=== PATIENT | female | born 1945 | race Caucasian/White ===

== ENCOUNTER 2019-07-07 17:55 | Inpatient (IN) | payer MEDICARE, OTHER ==
[~2019-07-07] VITALS: Ht 160 cm; Wt 79.4 kg
--- NOTE | 2019-07-07 19:27 | NUR ---
Assuming care of patient. US in room.
[2019-07-07 19:28] LABS: BASOPHILS # (AUTO) 0.05 x10^3/uL (0-0.1); BASOPHILS % (AUTO) 0 % (0-1); EOSINOPHILS # (AUTO) 0.15 x10^3/uL (0-0.4); EOSINOPHILS % (AUTO) 1 % (1-7); LYMPHOCYTES # (AUTO) 2.31 x10^3/uL (1-3.4); LYMPHOCYTES % (AUTO) 18 % (22-44); MD NO; MEAN CORPUSCULAR HEMOGLOBIN 29.4 pg (27.0-34.8); MEAN CORPUSCULAR HGB CONC 32.5 g/dL (32.4-35.8); MEAN CORPUSCULAR VOLUME 90.5 fL (80-100); MEAN PLATELET VOLUME 10.3 fL (7.4-10.4); MONOCYTES # (AUTO) 1.15 x10^3/uL (0.2-0.8); MONOCYTES % (AUTO) 9 % (2-9); NEUTROPHILS # (AUTO) 9.44 x10^3/uL (1.8-6.8); NEUTROPHILS % (AUTO) 72 % (42-75); PLATELET COUNT 362 x10^3/uL (130-400); RED BLOOD COUNT 4.57 x10^6/uL (3.82-5.3); RED CELL DISTRIBUTION WIDTH 15.1 % (9.6-15.2)
[2019-07-07 19:29] LABS: HCT (SEDRATE) 41.7 % (34.6-47.8)
[2019-07-07 19:41] LABS: ANION GAP 5 mmol/L (5-15); CALCIUM 8.7 mg/dL (8.5-10.1); CHLORIDE 110 mmol/L (98-107); CREATININE 1.32 mg/dL (0.55-1.02)
--- NOTE | 2019-07-07 20:01 | NUR ---
Patient presents to ER with swelling, redness, drainage, and pain to the left lower leg. Patient states this started 1 week ago. Patient went to urgent care and they sent her to ER for further care. Patient denies fever today but states she had them a few days ago because she was sick. Patient is in NAD. Respirations even and unlabored.
[2019-07-07] MEDS ORDERED: VANCOMYCIN 1,600 MG in SODIUM CHLORIDE 0.9% 250 ML IV ONE (20:30)
[2019-07-07] MEDS ORDERED: VANCOMYCIN PER PHARMACY MC PRN ×2 (20:30→21:00)
[2019-07-07] MEDS ORDERED: AMPICILLIN/SULBACTAM 3 GM in SODIUM CHLORIDE 0.9% 100 ML IV ONE (20:30)
[2019-07-07] MEDS ORDERED: morphine SULFATE 10 MG/ML, 1ML IVPush PRN (21:00)
[2019-07-07] MEDS ORDERED: GABAPENTIN 100 MG CAPSULE PO SCH (21:00)
[2019-07-07] MEDS ORDERED: GLUCAGON 1 MG IM PRN (21:00)
[2019-07-07] MEDS ORDERED: hydrALAzine 20 MG/ML, 1ML IVPush PRN (21:00)
[2019-07-07] MEDS ORDERED: ONDANSETRON 2MG/ML, 2ML IVPush PRN (21:00)
[2019-07-07] MEDS ORDERED: DEXTROSE 4 GM TAB.CHEW PO PRN (21:00)
[2019-07-07] MEDS ORDERED: DEXTROSE 50%, 50ML SYRINGE IVPush PRN (21:00)
[2019-07-07] MEDS ORDERED: ONDANSETRON ODT 4 MG PO PRN (21:00)
[2019-07-07 21:41] VITALS: BP 121/64
[2019-07-07] MEDS ORDERED: PHARMACOKINETIC MONITORING MC PRN (22:00)
[2019-07-07] MEDS ORDERED: PHARMACOKINETIC CONSULTATION MC ONE (22:00)
[2019-07-07] MEDS: ACETAMINOPHEN 325 MG TABLET PO PRN (22:08)
[2019-07-07] MEDS: OXYcodone IR 5MG TABLET PO PRN (22:08)
[2019-07-07] MEDS: SODIUM CHLORIDE FLUSH 10ML SYR IVF SCH (22:09)
[2019-07-07] MEDS: HEPARIN 5,000 UNITS/ML, 1ML SQ SCH (22:09)
[2019-07-07] MEDS: SODIUM CHLORIDE 0.9% 1,000 ML IV SCH (22:09)
[2019-07-07] MEDS ORDERED: METO25TA35 PO (22:51)
[2019-07-07] MEDS ORDERED: CLOP75TA PO (22:51)
[2019-07-07] MEDS ORDERED: ATOR40TA78 PO (22:51)
[2019-07-07] MEDS ORDERED: OMEP20CA14 PO (22:51)
[2019-07-07] MEDS ORDERED: LOSA100T14 PO (22:51)
[2019-07-07] MEDS ORDERED: RANI150C PO (22:51)
[2019-07-07] MEDS ORDERED: AMLO5TAB10 PO (22:51)
[2019-07-07] MEDS ORDERED: GABA800T5 PO (22:51)
[2019-07-07] MEDS ORDERED: ZOLP5TAB PO (22:51)
[2019-07-07] MEDS: ATORVASTATIN 40 MG TABLET PO SCH (23:21)
[2019-07-07] MEDS: ZOLPIDEM 5MG TABLET PO SCH (23:21)
[2019-07-07] MEDS: INSULIN LISPRO 100 UNITS/ML, PEN SQ-INSULIN SCH (23:22)
[2019-07-07] MEDS: VANCOMYCIN 1,600 MG in SODIUM CHLORIDE 0.9% 250 ML IV SCH (23:22)
[2019-07-08 01:04] VITALS: BP 127/72
[2019-07-08] MEDS: AMPICILLIN/SULBACTAM 3 GM in SODIUM CHLORIDE 0.9% 100 ML IV SCH ×3 (05:04→20:51)
[2019-07-08] MEDS ORDERED: CARVEDILOL 3.125 MG TABLET PO SCH (06:00)
[2019-07-08] MEDS: HEPARIN 5,000 UNITS/ML, 1ML SQ SCH ×3 (06:02→22:13)
[2019-07-08] MEDS: GABAPENTIN 400 MG CAPSULE PO SCH ×4 (06:02→20:51)
[2019-07-08] MEDS: ASPIRIN 81 MG TABLET EC PO SCH (06:02)
[2019-07-08] MEDS: METOPROLOL TARTRATE 25 MG TABLET PO SCH ×2 (06:02→17:30)
[2019-07-08 07:23] VITALS: BP 129/61
[2019-07-08] MEDS: CLOPIDOGREL 75 MG TABLET PO SCH (08:33)
[2019-07-08] MEDS: AMLODIPINE 5 MG TABLET PO SCH (08:33)
[2019-07-08] MEDS: SODIUM CHLORIDE FLUSH 10ML SYR IVF SCH ×2 (08:33→20:52)
[2019-07-08 08:34] LABS: BASOPHILS # (AUTO) 0.02 x10^3/uL (0-0.1); BASOPHILS % (AUTO) 0 % (0-1); EOSINOPHILS # (AUTO) 0.09 x10^3/uL (0-0.4); EOSINOPHILS % (AUTO) 1 % (1-7); LYMPHOCYTES # (AUTO) 1.78 x10^3/uL (1-3.4); LYMPHOCYTES % (AUTO) 20 % (22-44); MD NO; MEAN CORPUSCULAR HEMOGLOBIN 29.5 pg (27.0-34.8); MEAN CORPUSCULAR HGB CONC 32.4 g/dL (32.4-35.8); MEAN CORPUSCULAR VOLUME 91.1 fL (80-100); MEAN PLATELET VOLUME 10.8 fL (7.4-10.4); MONOCYTES # (AUTO) 0.72 x10^3/uL (0.2-0.8); MONOCYTES % (AUTO) 8 % (2-9); NEUTROPHILS # (AUTO) 6.23 x10^3/uL (1.8-6.8); NEUTROPHILS % (AUTO) 70 % (42-75); PLATELET COUNT 308 x10^3/uL (130-400); RED BLOOD COUNT 3.96 x10^6/uL (3.82-5.3); RED CELL DISTRIBUTION WIDTH 14.7 % (9.6-15.2)
[2019-07-08 08:40] LABS: ALANINE AMINOTRANSFERASE 23 U/L (12-78); ALBUMIN 1.8 g/dL (3.4-5.0); ANION GAP 7 mmol/L (5-15); CALCIUM 8.1 mg/dL (8.5-10.1); CHLORIDE 110 mmol/L (98-107); CREATININE 0.99 mg/dL (0.55-1.02)
[2019-07-08 08:43] LABS: ALKALINE PHOSPHATASE 110 U/L (45-117); BILIRUBIN,TOTAL 0.8 mg/dL (0.2-1.0); TOTAL PROTEIN 6.3 g/dL (6.4-8.2)
[2019-07-08] MEDS: LOSARTAN 100 MG TAB PO SCH (08:43)
[2019-07-08] MEDS: SODIUM CHLORIDE 0.9% 1,000 ML IV SCH ×2 (08:43→17:43)
[2019-07-08] MEDS: INSULIN LISPRO 100 UNITS/ML, PEN SQ-INSULIN SCH ×4 (08:44→20:52)
[2019-07-08] MEDS: OXYcodone IR 5MG TABLET PO PRN ×3 (08:44→21:21)
[2019-07-08] MEDS: ACETAMINOPHEN 325 MG TABLET PO PRN (10:35)
[2019-07-08 14:00] VITALS: BP 130/68
[2019-07-08] MEDS: metFORMIN 500 MG TABLET PO SCH (17:29)
[2019-07-08 19:24] VITALS: BP 133/71
[2019-07-08] MEDS: ZOLPIDEM 5MG TABLET PO SCH (20:51)
[2019-07-08] MEDS: ATORVASTATIN 40 MG TABLET PO SCH (20:51)
[2019-07-08] MEDS: VANCOMYCIN 1,600 MG in SODIUM CHLORIDE 0.9% 250 ML IV SCH (23:29)
[2019-07-09 01:11] VITALS: BP 143/72
[2019-07-09] MEDS: SODIUM CHLORIDE 0.9% 1,000 ML IV SCH (04:46)
[2019-07-09] MEDS: AMPICILLIN/SULBACTAM 3 GM in SODIUM CHLORIDE 0.9% 100 ML IV SCH ×3 (04:46→21:05)
[2019-07-09] MEDS: HEPARIN 5,000 UNITS/ML, 1ML SQ SCH ×3 (06:06→21:23)
[2019-07-09] MEDS: GABAPENTIN 400 MG CAPSULE PO SCH ×4 (06:07→21:04)
[2019-07-09] MEDS: ASPIRIN 81 MG TABLET EC PO SCH (06:07)
[2019-07-09] MEDS: METOPROLOL TARTRATE 25 MG TABLET PO SCH ×2 (06:07→17:22)
[2019-07-09 06:08] VITALS: BP 149/67
[2019-07-09] MEDS: INSULIN LISPRO 100 UNITS/ML, PEN SQ-INSULIN SCH ×4 (07:00→21:06)
[2019-07-09] MEDS: AMLODIPINE 5 MG TABLET PO SCH (08:56)
[2019-07-09] MEDS: metFORMIN 500 MG TABLET PO SCH ×2 (08:56→15:46)
[2019-07-09] MEDS: CLOPIDOGREL 75 MG TABLET PO SCH (08:56)
[2019-07-09] MEDS: LOSARTAN 100 MG TAB PO SCH (08:56)
[2019-07-09] MEDS: SODIUM CHLORIDE FLUSH 10ML SYR IVF SCH ×2 (08:57→21:05)
[2019-07-09 09:28] VITALS: BP 146/78
[2019-07-09 13:34] VITALS: BP 125/69
[2019-07-09 20:04] VITALS: BP 145/78
[2019-07-09] MEDS: ZOLPIDEM 5MG TABLET PO SCH (21:04)
[2019-07-09] MEDS: ATORVASTATIN 40 MG TABLET PO SCH (21:04)
[2019-07-09] MEDS: INSULIN GLARGINE 100 UNITS/ML, PEN SQ-INSULIN SCH (21:06)
[2019-07-09] MEDS: OXYcodone IR 5MG TABLET PO PRN (21:22)
[2019-07-09] MEDS: VANCOMYCIN 1,600 MG in SODIUM CHLORIDE 0.9% 250 ML IV SCH (23:58)
[2019-07-10 00:10] VITALS: BP 136/64
[2019-07-10] MEDS: METOPROLOL TARTRATE 25 MG TABLET PO SCH ×2 (05:33→17:54)
[2019-07-10] MEDS: ASPIRIN 81 MG TABLET EC PO SCH (05:33)
[2019-07-10] MEDS: AMPICILLIN/SULBACTAM 3 GM in SODIUM CHLORIDE 0.9% 100 ML IV SCH ×3 (05:33→21:08)
[2019-07-10] MEDS: HEPARIN 5,000 UNITS/ML, 1ML SQ SCH ×3 (05:33→21:14)
[2019-07-10] MEDS: GABAPENTIN 400 MG CAPSULE PO SCH ×4 (05:34→21:08)
[2019-07-10] MEDS: INSULIN LISPRO 100 UNITS/ML, PEN SQ-INSULIN SCH ×4 (07:00→21:12)
[2019-07-10 08:56] VITALS: BP 132/68
[2019-07-10] MEDS: CLOPIDOGREL 75 MG TABLET PO SCH (09:28)
[2019-07-10] MEDS: metFORMIN 500 MG TABLET PO SCH ×2 (09:28→17:54)
[2019-07-10] MEDS: AMLODIPINE 5 MG TABLET PO SCH (09:28)
[2019-07-10] MEDS: LOSARTAN 100 MG TAB PO SCH (09:28)
[2019-07-10] MEDS: SODIUM CHLORIDE FLUSH 10ML SYR IVF SCH ×2 (09:28→21:14)
[2019-07-10 15:00] VITALS: BP 148/69
[2019-07-10 19:40] VITALS: BP 147/76
[2019-07-10] MEDS: ZOLPIDEM 5MG TABLET PO SCH (21:00)
[2019-07-10] MEDS: ATORVASTATIN 40 MG TABLET PO SCH (21:08)
[2019-07-10] MEDS: INSULIN GLARGINE 100 UNITS/ML, PEN SQ-INSULIN SCH (21:11)
[2019-07-10 22:55] LABS: CREATININE 0.78 mg/dL (0.55-1.02)
[2019-07-10 22:56] LABS: VANCOMYCIN,TROUGH 11.4 mcg/mL (5.0-10.0)
[2019-07-10] MEDS: VANCOMYCIN 1,600 MG in SODIUM CHLORIDE 0.9% 250 ML IV SCH (23:33)
[2019-07-11 01:37] VITALS: BP 136/76
[2019-07-11] MEDS: AMPICILLIN/SULBACTAM 3 GM in SODIUM CHLORIDE 0.9% 100 ML IV SCH ×3 (04:59→21:26)
[2019-07-11] MEDS: ASPIRIN 81 MG TABLET EC PO SCH (05:49)
[2019-07-11] MEDS: GABAPENTIN 400 MG CAPSULE PO SCH ×4 (05:50→21:27)
[2019-07-11] MEDS: METOPROLOL TARTRATE 25 MG TABLET PO SCH ×2 (05:50→17:05)
[2019-07-11] MEDS: HEPARIN 5,000 UNITS/ML, 1ML SQ SCH ×4 (05:50→21:27)
[2019-07-11 06:26] LABS: CHLORIDE 108 mmol/L (98-107)
[2019-07-11 06:31] LABS: ALANINE AMINOTRANSFERASE 21 U/L (12-78); ALBUMIN 1.7 g/dL (3.4-5.0); ALKALINE PHOSPHATASE 89 U/L (45-117); ANION GAP 6 mmol/L (5-15); BILIRUBIN,TOTAL 0.4 mg/dL (0.2-1.0); C-REACTIVE PROTEIN, QUANT 0.94 mg/dL (0.02-0.49); CREATININE 0.68 mg/dL (0.55-1.02); TOTAL PROTEIN 6.2 g/dL (6.4-8.2)
[2019-07-11 06:53] LABS: BASOPHILS # (AUTO) 0.04 x10^3/uL (0-0.1); BASOPHILS % (AUTO) 1 % (0-1); EOSINOPHILS # (AUTO) 0.19 x10^3/uL (0-0.4); EOSINOPHILS % (AUTO) 3 % (1-7); LYMPHOCYTES # (AUTO) 2.15 x10^3/uL (1-3.4); LYMPHOCYTES % (AUTO) 28 % (22-44); MD NO; MEAN CORPUSCULAR HEMOGLOBIN 29.4 pg (27.0-34.8); MEAN CORPUSCULAR HGB CONC 32.6 g/dL (32.4-35.8); MEAN CORPUSCULAR VOLUME 90.2 fL (80-100); MEAN PLATELET VOLUME 10.4 fL (7.4-10.4); MONOCYTES # (AUTO) 0.68 x10^3/uL (0.2-0.8); MONOCYTES % (AUTO) 9 % (2-9); NEUTROPHILS # (AUTO) 4.74 x10^3/uL (1.8-6.8); NEUTROPHILS % (AUTO) 61 % (42-75); PLATELET COUNT 237 x10^3/uL (130-400); RED BLOOD COUNT 3.81 x10^6/uL (3.82-5.3); RED CELL DISTRIBUTION WIDTH 15.2 % (9.6-15.2)
[2019-07-11 06:56] LABS: HCT (SEDRATE) 34.4 % (34.6-47.8)
[2019-07-11 07:05] VITALS: BP 145/77
[2019-07-11] MEDS: LOSARTAN 100 MG TAB PO SCH (09:07)
[2019-07-11] MEDS: CLOPIDOGREL 75 MG TABLET PO SCH (09:07)
[2019-07-11] MEDS: AMLODIPINE 5 MG TABLET PO SCH (09:07)
[2019-07-11] MEDS: metFORMIN 500 MG TABLET PO SCH ×2 (09:07→17:04)
[2019-07-11] MEDS: SODIUM CHLORIDE FLUSH 10ML SYR IVF SCH ×2 (09:08→21:27)
[2019-07-11] MEDS: INSULIN LISPRO 100 UNITS/ML, PEN SQ-INSULIN SCH ×4 (09:08→21:28)
[2019-07-11] MEDS: OXYcodone IR 5MG TABLET PO PRN (09:18)
[2019-07-11 12:50] VITALS: BP 138/77
[2019-07-11 17:02] VITALS: BP 149/90
[2019-07-11 19:49] VITALS: BP 147/78
[2019-07-11] MEDS: ZOLPIDEM 5MG TABLET PO SCH (21:27)
[2019-07-11] MEDS: ATORVASTATIN 40 MG TABLET PO SCH (21:27)
[2019-07-11] MEDS: INSULIN GLARGINE 100 UNITS/ML, PEN SQ-INSULIN SCH (21:29)
[2019-07-11] MEDS: VANCOMYCIN 1,600 MG in SODIUM CHLORIDE 0.9% 250 ML IV SCH (22:56)
[2019-07-12] VITALS (7 sets, daily range): BP systolic 119–163; BP diastolic 60–76
[2019-07-12] MEDS: ASPIRIN 81 MG TABLET EC PO SCH (05:45)
[2019-07-12] MEDS: GABAPENTIN 400 MG CAPSULE PO SCH ×4 (05:45→22:39)
[2019-07-12] MEDS: AMPICILLIN/SULBACTAM 3 GM in SODIUM CHLORIDE 0.9% 100 ML IV SCH (05:45)
[2019-07-12] MEDS: HEPARIN 5,000 UNITS/ML, 1ML SQ SCH ×3 (05:45→22:39)
[2019-07-12] MEDS: METOPROLOL TARTRATE 25 MG TABLET PO SCH ×2 (05:46→17:26)
[2019-07-12] MEDS: INSULIN LISPRO 100 UNITS/ML, PEN SQ-INSULIN SCH ×4 (08:59→21:00)
[2019-07-12] MEDS: SODIUM CHLORIDE FLUSH 10ML SYR IVF SCH ×2 (09:07→22:40)
[2019-07-12] MEDS: LOSARTAN 100 MG TAB PO SCH (09:07)
[2019-07-12] MEDS: metFORMIN 500 MG TABLET PO SCH ×2 (09:08→16:12)
[2019-07-12] MEDS: AMLODIPINE 5 MG TABLET PO SCH (09:08)
[2019-07-12] MEDS: CLOPIDOGREL 75 MG TABLET PO SCH (09:08)
[2019-07-12] MEDS: OXYcodone IR 5MG TABLET PO PRN ×3 (09:08→23:19)
[2019-07-12] MEDS: ATORVASTATIN 40 MG TABLET PO SCH (22:39)
[2019-07-12] MEDS: ZOLPIDEM 5MG TABLET PO SCH (22:39)
[2019-07-12] MEDS: VANCOMYCIN 1,600 MG in SODIUM CHLORIDE 0.9% 250 ML IV SCH (22:47)
[2019-07-12] MEDS: INSULIN GLARGINE 100 UNITS/ML, PEN SQ-INSULIN SCH (22:47)
[2019-07-13 01:42] VITALS: BP 130/76
[2019-07-13 05:51] VITALS: BP 121/69
[2019-07-13] MEDS: GABAPENTIN 400 MG CAPSULE PO SCH ×3 (05:56→16:38)
[2019-07-13] MEDS: OXYcodone IR 5MG TABLET PO PRN ×2 (05:57→13:59)
[2019-07-13] MEDS: ASPIRIN 81 MG TABLET EC PO SCH (05:57)
[2019-07-13] MEDS: HEPARIN 5,000 UNITS/ML, 1ML SQ SCH ×2 (05:57→13:58)
[2019-07-13] MEDS: METOPROLOL TARTRATE 25 MG TABLET PO SCH (05:57)
[2019-07-13 06:53] VITALS: BP 120/70
[2019-07-13] MEDS: INSULIN LISPRO 100 UNITS/ML, PEN SQ-INSULIN SCH ×3 (07:00→16:00)
[2019-07-13] MEDS: SODIUM CHLORIDE FLUSH 10ML SYR IVF SCH (09:00)
[2019-07-13] MEDS: CLOPIDOGREL 75 MG TABLET PO SCH ×2 (09:30→09:35)
[2019-07-13] MEDS: metFORMIN 500 MG TABLET PO SCH ×2 (09:30→16:37)
[2019-07-13] MEDS: AMLODIPINE 5 MG TABLET PO SCH (09:30)
[2019-07-13] MEDS: LOSARTAN 100 MG TAB PO SCH (09:56)
[2019-07-13] MEDS ORDERED: OXYC5TAB3 PO (11:20)
[2019-07-13] MEDS ORDERED: METF500T PO (11:21)
[2019-07-13] MEDS ORDERED: INSU100I11 SQ-INSULIN (11:21)
[2019-07-13] MEDS ORDERED: INSU100I13 SQ-INSULIN (11:21)
[2019-07-13 14:03] VITALS: BP 155/65
[2019-07-13] MEDS ORDERED: VANCOMYCIN IV (17:16)
== END 2019-07-13 18:02 | DRG 602 ==
LOC: ED 20:23 → SUATTDRO 20:24 → EDIP 20:30 → ED 20:42 → 4EST 21:18 → UNDODISIN 07-13 17:41
PROVIDERS: ADMIT Hospitalist; ATTEND Hospitalist
DX: L03.116 Cellulitis of left lower limb (principal); N17.0 Acute kidney failure with tubular necrosis; L97.929 Non-pressure chronic ulcer of unspecified part of left lower leg with unspecified severity; E87.5 Hyperkalemia; I10 Essential (primary) hypertension; G62.9 Polyneuropathy, unspecified; E11.42 Type 2 diabetes mellitus with diabetic polyneuropathy; E11.65 Type 2 diabetes mellitus with hyperglycemia; E78.00 Pure hypercholesterolemia, unspecified; I25.10 Atherosclerotic heart disease of native coronary artery without angina pectoris; K21.9 Gastro-esophageal reflux disease without esophagitis; Z82.49 Family history of ischemic heart disease and other diseases of the circulatory system; Z83.3 Family history of diabetes mellitus; Z95.5 Presence of coronary angioplasty implant and graft; Z98.84 Bariatric surgery status
CPT/HCPCS: 36415; 80048; 80053; 80202; 82565; 82962; 83036; 85025; 85651; 86140; 87040; 87070; 87077; 87147; 87186; 87205; 96374; G0378; J0295; J1644; J3370; J1815; J7030; J7050

== ENCOUNTER 2019-08-03 10:27 | Outpatient (CLI) | payer OTHER ==
[~2019-08-03 10:27] MED LIST: AMLO5TAB10 PO; ATOR40TA78 PO; CLOP75TA PO; GABA800T5 PO; INSU100I11 SQ-INSULIN; INSU100I13 SQ-INSULIN; LOSA100T14 PO; METF500T PO; METO25TA35 PO; OMEP20CA20 PO; OXYC5TAB3 PO; RANI150C PO; VANCOMYCIN IV; ZOLP5TAB PO
== END 2019-08-03 23:59 | disposition home or self-care (01) ==
LOC: WOUND 10:27
PROVIDERS: ATTEND Internal Medicine
DX: E11.622 Type 2 diabetes mellitus with other skin ulcer (principal); I87.332 Chronic venous hypertension (idiopathic) with ulcer and inflammation of left lower extremity; L97.222 Non-pressure chronic ulcer of left calf with fat layer exposed; E11.42 Type 2 diabetes mellitus with diabetic polyneuropathy; I25.10 Atherosclerotic heart disease of native coronary artery without angina pectoris; I10 Essential (primary) hypertension; K21.9 Gastro-esophageal reflux disease without esophagitis; E78.00 Pure hypercholesterolemia, unspecified; B95.62 Methicillin resistant Staphylococcus aureus infection as the cause of diseases classified elsewhere; Z95.5 Presence of coronary angioplasty implant and graft; Z98.84 Bariatric surgery status; Z87.891 Personal history of nicotine dependence
CPT/HCPCS: 97597; 99215

== ENCOUNTER 2019-08-10 11:00 | Outpatient (CLI) | payer OTHER | END 2019-08-10 23:59 | disposition home or self-care (01) | LOC: WOUND 11:00 | PROVIDERS: ATTEND Internal Medicine | DX: E11.622 Type 2 diabetes mellitus with other skin ulcer (principal); I87.332 Chronic venous hypertension (idiopathic) with ulcer and inflammation of left lower extremity; L97.222 Non-pressure chronic ulcer of left calf with fat layer exposed; E11.42 Type 2 diabetes mellitus with diabetic polyneuropathy; I25.10 Atherosclerotic heart disease of native coronary artery without angina pectoris; I10 Essential (primary) hypertension; K21.9 Gastro-esophageal reflux disease without esophagitis; E78.00 Pure hypercholesterolemia, unspecified; B95.62 Methicillin resistant Staphylococcus aureus infection as the cause of diseases classified elsewhere; Z95.5 Presence of coronary angioplasty implant and graft; Z98.84 Bariatric surgery status; Z87.891 Personal history of nicotine dependence | CPT/HCPCS: 97597 ==

== ENCOUNTER 2019-08-18 16:03 | Emergency (ER) | payer OTHER ==
[~2019-08-18] VITALS: Ht 160 cm; Wt 78.0 kg
--- NOTE | 2019-08-18 16:09 | NUR ---
PT STRAIGHT BACK FROM [facility]. PT STATES SHE SLID OUT OF THE CHAIR AND LANDED ON LEFT WRIST. PT STATES MILD PAIN TO WRIST, ICE BAG APPLIED. PT DRESSED IN GOWN AND ATTACHED TO MONITOR. MD AT BEDSIDE FOR EXAM. NAD, ROOM AIR, SIDERAIL X [address], CALL LIGHT WITHIN REACH.
[2019-08-18 16:11] VITALS: BP 114/70
--- NOTE | 2019-08-18 16:29 | NUR ---
RAD AT BEDSIDE.
[2019-08-18] MEDS ORDERED: ACETAMINOPHEN 500 MG TABLET ONE (16:44)
--- NOTE | 2019-08-18 16:48 | NUR ---
PT MEDICATED PER ORDERS
[2019-08-18] MEDS ORDERED: ACETAMINOPHEN 500 MG TABLET PO ONE (17:00)
--- NOTE | 2019-08-18 17:26 | NUR ---
Patient/Caregiver given discharge instructions and they have confirmed that they understand the instructions. Patient ambulatory with steady gait.
== END 2019-08-18 17:27 | disposition home or self-care (01) ==
LOC: ED 16:20
DX: S52.571A Other intraarticular fracture of lower end of right radius, initial encounter for closed fracture (principal); R42 Dizziness and giddiness; Z87.891 Personal history of nicotine dependence; W07.XXXA Fall from chair, initial encounter; Y93.89 Activity, other specified; Y92.89 Other specified places as the place of occurrence of the external cause; Y99.8 Other external cause status
CPT/HCPCS: 29125; 99283

== ENCOUNTER → 2019-08-18 | Outpatient (CLI) | payer OTHER | END | disposition home or self-care (01) | LOC: CVU 13:11 | PROVIDERS: ATTEND Internal Medicine | DX: L97.222 Non-pressure chronic ulcer of left calf with fat layer exposed (principal); I87.332 Chronic venous hypertension (idiopathic) with ulcer and inflammation of left lower extremity | CPT/HCPCS: 93922; 93925; 93970 ==

== ENCOUNTER → 2019-08-19 | Outpatient (CLI) | payer OTHER | END | disposition home or self-care (01) | LOC: WOUND 14:03 | PROVIDERS: ATTEND Family Medicine | DX: E11.622 Type 2 diabetes mellitus with other skin ulcer (principal); I87.332 Chronic venous hypertension (idiopathic) with ulcer and inflammation of left lower extremity; L97.222 Non-pressure chronic ulcer of left calf with fat layer exposed; E11.42 Type 2 diabetes mellitus with diabetic polyneuropathy; I25.10 Atherosclerotic heart disease of native coronary artery without angina pectoris; I10 Essential (primary) hypertension; E78.00 Pure hypercholesterolemia, unspecified; K21.9 Gastro-esophageal reflux disease without esophagitis; B95.62 Methicillin resistant Staphylococcus aureus infection as the cause of diseases classified elsewhere; Z95.5 Presence of coronary angioplasty implant and graft; Z98.84 Bariatric surgery status; Z87.891 Personal history of nicotine dependence | CPT/HCPCS: 10060 ==

== ENCOUNTER 2019-08-26 12:59 | Outpatient (CLI) | payer OTHER | END 2019-08-26 23:59 | disposition home or self-care (01) | LOC: WOUND 12:59 | PROVIDERS: ATTEND Family Medicine | DX: I87.332 Chronic venous hypertension (idiopathic) with ulcer and inflammation of left lower extremity (principal); E11.622 Type 2 diabetes mellitus with other skin ulcer; L97.222 Non-pressure chronic ulcer of left calf with fat layer exposed; E11.42 Type 2 diabetes mellitus with diabetic polyneuropathy; I25.10 Atherosclerotic heart disease of native coronary artery without angina pectoris; I10 Essential (primary) hypertension; E78.00 Pure hypercholesterolemia, unspecified; K21.9 Gastro-esophageal reflux disease without esophagitis; B95.62 Methicillin resistant Staphylococcus aureus infection as the cause of diseases classified elsewhere; Z95.5 Presence of coronary angioplasty implant and graft; Z98.84 Bariatric surgery status; Z87.891 Personal history of nicotine dependence | CPT/HCPCS: 97597 ==

== ENCOUNTER → 2019-09-02 | Outpatient (CLI) | payer OTHER | END | disposition home or self-care (01) | LOC: WOUND 14:09 | PROVIDERS: ATTEND Family Medicine | DX: I87.332 Chronic venous hypertension (idiopathic) with ulcer and inflammation of left lower extremity (principal); E11.622 Type 2 diabetes mellitus with other skin ulcer; L97.222 Non-pressure chronic ulcer of left calf with fat layer exposed; E11.42 Type 2 diabetes mellitus with diabetic polyneuropathy; I25.10 Atherosclerotic heart disease of native coronary artery without angina pectoris; I10 Essential (primary) hypertension; E78.00 Pure hypercholesterolemia, unspecified; K21.9 Gastro-esophageal reflux disease without esophagitis; B95.62 Methicillin resistant Staphylococcus aureus infection as the cause of diseases classified elsewhere; Z95.5 Presence of coronary angioplasty implant and graft; Z98.84 Bariatric surgery status; Z87.891 Personal history of nicotine dependence | CPT/HCPCS: 11042 ==

== ENCOUNTER 2019-09-16 13:27 | Outpatient (CLI) | payer OTHER | END 2019-09-16 23:59 | disposition home or self-care (01) | LOC: WOUND 13:27 | PROVIDERS: ATTEND Family Medicine | DX: I87.332 Chronic venous hypertension (idiopathic) with ulcer and inflammation of left lower extremity (principal); E11.622 Type 2 diabetes mellitus with other skin ulcer; L97.222 Non-pressure chronic ulcer of left calf with fat layer exposed; E11.42 Type 2 diabetes mellitus with diabetic polyneuropathy; I25.10 Atherosclerotic heart disease of native coronary artery without angina pectoris; I10 Essential (primary) hypertension; E78.00 Pure hypercholesterolemia, unspecified; K21.9 Gastro-esophageal reflux disease without esophagitis; B95.62 Methicillin resistant Staphylococcus aureus infection as the cause of diseases classified elsewhere; Z95.5 Presence of coronary angioplasty implant and graft; Z98.84 Bariatric surgery status; Z87.891 Personal history of nicotine dependence | CPT/HCPCS: 11043 ==

== ENCOUNTER 2019-10-07 12:59 | Outpatient (CLI) | payer OTHER | END 2019-10-07 23:59 | disposition home or self-care (01) | LOC: WOUND 12:59 | PROVIDERS: ATTEND Family Medicine | DX: I87.332 Chronic venous hypertension (idiopathic) with ulcer and inflammation of left lower extremity (principal); E11.622 Type 2 diabetes mellitus with other skin ulcer; L97.222 Non-pressure chronic ulcer of left calf with fat layer exposed; E11.42 Type 2 diabetes mellitus with diabetic polyneuropathy; I25.10 Atherosclerotic heart disease of native coronary artery without angina pectoris; I10 Essential (primary) hypertension; E78.00 Pure hypercholesterolemia, unspecified; K21.9 Gastro-esophageal reflux disease without esophagitis; B95.62 Methicillin resistant Staphylococcus aureus infection as the cause of diseases classified elsewhere; Z95.5 Presence of coronary angioplasty implant and graft; Z98.84 Bariatric surgery status; Z87.891 Personal history of nicotine dependence | CPT/HCPCS: 11042 ==

== ENCOUNTER 2019-10-14 13:26 | Outpatient (CLI) | payer OTHER | END 2019-10-14 23:59 | disposition home or self-care (01) | LOC: WOUND 13:26 | PROVIDERS: ATTEND Family Medicine | DX: I87.332 Chronic venous hypertension (idiopathic) with ulcer and inflammation of left lower extremity (principal); E11.622 Type 2 diabetes mellitus with other skin ulcer; L97.222 Non-pressure chronic ulcer of left calf with fat layer exposed; L97.821 Non-pressure chronic ulcer of other part of left lower leg limited to breakdown of skin; L03.116 Cellulitis of left lower limb; B95.62 Methicillin resistant Staphylococcus aureus infection as the cause of diseases classified elsewhere; E11.42 Type 2 diabetes mellitus with diabetic polyneuropathy; K21.9 Gastro-esophageal reflux disease without esophagitis; I25.10 Atherosclerotic heart disease of native coronary artery without angina pectoris; E78.00 Pure hypercholesterolemia, unspecified; Z87.891 Personal history of nicotine dependence; Z95.1 Presence of aortocoronary bypass graft | CPT/HCPCS: 97597 ==

== ENCOUNTER → 2019-10-21 | Outpatient (CLI) | payer OTHER | END | disposition home or self-care (01) | LOC: WOUND 10:35 | PROVIDERS: ATTEND Family Medicine | DX: I87.332 Chronic venous hypertension (idiopathic) with ulcer and inflammation of left lower extremity (principal); E11.622 Type 2 diabetes mellitus with other skin ulcer; L97.222 Non-pressure chronic ulcer of left calf with fat layer exposed; L97.821 Non-pressure chronic ulcer of other part of left lower leg limited to breakdown of skin; L03.116 Cellulitis of left lower limb; E11.42 Type 2 diabetes mellitus with diabetic polyneuropathy; B95.62 Methicillin resistant Staphylococcus aureus infection as the cause of diseases classified elsewhere; K21.9 Gastro-esophageal reflux disease without esophagitis; I25.10 Atherosclerotic heart disease of native coronary artery without angina pectoris; E78.00 Pure hypercholesterolemia, unspecified; Z87.891 Personal history of nicotine dependence; Z95.1 Presence of aortocoronary bypass graft | CPT/HCPCS: 11042 ==

== ENCOUNTER → 2019-10-28 | Outpatient (CLI) | payer OTHER | END | disposition home or self-care (01) | LOC: WOUND 10:13 | PROVIDERS: ATTEND Family Medicine | DX: E11.622 Type 2 diabetes mellitus with other skin ulcer (principal); I87.332 Chronic venous hypertension (idiopathic) with ulcer and inflammation of left lower extremity; L97.222 Non-pressure chronic ulcer of left calf with fat layer exposed; L97.821 Non-pressure chronic ulcer of other part of left lower leg limited to breakdown of skin; L03.116 Cellulitis of left lower limb; E11.42 Type 2 diabetes mellitus with diabetic polyneuropathy; B95.62 Methicillin resistant Staphylococcus aureus infection as the cause of diseases classified elsewhere; K21.9 Gastro-esophageal reflux disease without esophagitis; I25.10 Atherosclerotic heart disease of native coronary artery without angina pectoris; E78.00 Pure hypercholesterolemia, unspecified; Z87.891 Personal history of nicotine dependence; Z95.1 Presence of aortocoronary bypass graft | CPT/HCPCS: 97597 ==

== ENCOUNTER → 2019-11-04 | Outpatient (CLI) | payer OTHER | END | disposition home or self-care (01) | LOC: WOUND 11:17 | PROVIDERS: ATTEND Family Medicine | DX: E11.622 Type 2 diabetes mellitus with other skin ulcer (principal); I87.332 Chronic venous hypertension (idiopathic) with ulcer and inflammation of left lower extremity; L97.222 Non-pressure chronic ulcer of left calf with fat layer exposed; L97.821 Non-pressure chronic ulcer of other part of left lower leg limited to breakdown of skin; E11.42 Type 2 diabetes mellitus with diabetic polyneuropathy; B95.62 Methicillin resistant Staphylococcus aureus infection as the cause of diseases classified elsewhere; K21.9 Gastro-esophageal reflux disease without esophagitis; I25.10 Atherosclerotic heart disease of native coronary artery without angina pectoris; E78.00 Pure hypercholesterolemia, unspecified; Z87.891 Personal history of nicotine dependence; Z95.1 Presence of aortocoronary bypass graft | CPT/HCPCS: 97597 ==

== ENCOUNTER → 2019-11-11 | Outpatient (CLI) | payer OTHER | END | disposition home or self-care (01) | LOC: WOUND 11:07 | PROVIDERS: ATTEND Family Medicine | DX: E11.622 Type 2 diabetes mellitus with other skin ulcer (principal); I87.332 Chronic venous hypertension (idiopathic) with ulcer and inflammation of left lower extremity; L97.222 Non-pressure chronic ulcer of left calf with fat layer exposed; L97.821 Non-pressure chronic ulcer of other part of left lower leg limited to breakdown of skin; E11.42 Type 2 diabetes mellitus with diabetic polyneuropathy; B95.62 Methicillin resistant Staphylococcus aureus infection as the cause of diseases classified elsewhere; K21.9 Gastro-esophageal reflux disease without esophagitis; I25.10 Atherosclerotic heart disease of native coronary artery without angina pectoris; E78.00 Pure hypercholesterolemia, unspecified; Z87.891 Personal history of nicotine dependence; Z95.1 Presence of aortocoronary bypass graft | CPT/HCPCS: 97597 ==

== ENCOUNTER 2019-11-18 11:04 | Outpatient (CLI) | payer OTHER | END 2019-11-18 23:59 | disposition home or self-care (01) | LOC: WOUND 11:04 | PROVIDERS: ATTEND Family Medicine | DX: E11.622 Type 2 diabetes mellitus with other skin ulcer (principal); I87.332 Chronic venous hypertension (idiopathic) with ulcer and inflammation of left lower extremity; L97.222 Non-pressure chronic ulcer of left calf with fat layer exposed; L97.821 Non-pressure chronic ulcer of other part of left lower leg limited to breakdown of skin; E11.42 Type 2 diabetes mellitus with diabetic polyneuropathy; B95.62 Methicillin resistant Staphylococcus aureus infection as the cause of diseases classified elsewhere; K21.9 Gastro-esophageal reflux disease without esophagitis; I25.10 Atherosclerotic heart disease of native coronary artery without angina pectoris; E78.00 Pure hypercholesterolemia, unspecified; Z87.891 Personal history of nicotine dependence; Z95.1 Presence of aortocoronary bypass graft | CPT/HCPCS: 97597 ==

== ENCOUNTER → 2019-11-25 | Outpatient (CLI) | payer OTHER | END | disposition home or self-care (01) | LOC: WOUND 10:51 | PROVIDERS: ATTEND Internal Medicine Cardiovascular Disease | DX: E11.622 Type 2 diabetes mellitus with other skin ulcer (principal); I87.332 Chronic venous hypertension (idiopathic) with ulcer and inflammation of left lower extremity; L97.222 Non-pressure chronic ulcer of left calf with fat layer exposed; L97.821 Non-pressure chronic ulcer of other part of left lower leg limited to breakdown of skin; E11.42 Type 2 diabetes mellitus with diabetic polyneuropathy; B95.62 Methicillin resistant Staphylococcus aureus infection as the cause of diseases classified elsewhere; K21.9 Gastro-esophageal reflux disease without esophagitis; I25.10 Atherosclerotic heart disease of native coronary artery without angina pectoris; E78.00 Pure hypercholesterolemia, unspecified; Z87.891 Personal history of nicotine dependence; Z95.1 Presence of aortocoronary bypass graft | CPT/HCPCS: 29581 ==

== ENCOUNTER 2019-12-02 10:57 | Outpatient (CLI) | payer OTHER | END 2019-12-02 23:59 | disposition home or self-care (01) | LOC: WOUND 10:57 | PROVIDERS: ATTEND Family Medicine | DX: E11.622 Type 2 diabetes mellitus with other skin ulcer (principal); I87.332 Chronic venous hypertension (idiopathic) with ulcer and inflammation of left lower extremity; L97.222 Non-pressure chronic ulcer of left calf with fat layer exposed; L97.821 Non-pressure chronic ulcer of other part of left lower leg limited to breakdown of skin; E11.42 Type 2 diabetes mellitus with diabetic polyneuropathy; B95.62 Methicillin resistant Staphylococcus aureus infection as the cause of diseases classified elsewhere; K21.9 Gastro-esophageal reflux disease without esophagitis; I25.10 Atherosclerotic heart disease of native coronary artery without angina pectoris; E78.00 Pure hypercholesterolemia, unspecified; Z87.891 Personal history of nicotine dependence; Z95.1 Presence of aortocoronary bypass graft | CPT/HCPCS: 97597 ==

== ENCOUNTER → 2019-12-16 | Outpatient (CLI) | payer OTHER | END | disposition home or self-care (01) | LOC: WOUND 10:25 | PROVIDERS: ATTEND Internal Medicine | DX: E11.622 Type 2 diabetes mellitus with other skin ulcer (principal); L97.821 Non-pressure chronic ulcer of other part of left lower leg limited to breakdown of skin; E11.42 Type 2 diabetes mellitus with diabetic polyneuropathy; B95.62 Methicillin resistant Staphylococcus aureus infection as the cause of diseases classified elsewhere; I87.2 Venous insufficiency (chronic) (peripheral); K21.9 Gastro-esophageal reflux disease without esophagitis; I25.10 Atherosclerotic heart disease of native coronary artery without angina pectoris; E78.00 Pure hypercholesterolemia, unspecified; Z87.891 Personal history of nicotine dependence; Z95.1 Presence of aortocoronary bypass graft | CPT/HCPCS: 97597 ==

== ENCOUNTER → 2019-12-21 | Outpatient (CLI) | payer OTHER | END | disposition home or self-care (01) | LOC: WOUND 14:28 | PROVIDERS: ATTEND Internal Medicine | DX: E11.622 Type 2 diabetes mellitus with other skin ulcer (principal); L97.222 Non-pressure chronic ulcer of left calf with fat layer exposed; E11.42 Type 2 diabetes mellitus with diabetic polyneuropathy; I87.2 Venous insufficiency (chronic) (peripheral); I10 Essential (primary) hypertension; K21.9 Gastro-esophageal reflux disease without esophagitis; I25.10 Atherosclerotic heart disease of native coronary artery without angina pectoris; E78.00 Pure hypercholesterolemia, unspecified; Z87.891 Personal history of nicotine dependence; Z95.1 Presence of aortocoronary bypass graft; Z86.14 Personal history of Methicillin resistant Staphylococcus aureus infection | CPT/HCPCS: 97597 ==

== ENCOUNTER 2020-02-29 10:17 | Inpatient (IN) | payer MEDICARE, OTHER ==
[~2020-02-29] VITALS: Ht 160 cm; Wt 69.9 kg
[2020-02-29] MEDS ORDERED: VANCOMYCIN PER PHARMACY MC ONE (10:30)
[2020-02-29] MEDS ORDERED: VANCOMYCIN 1,500 MG in SODIUM CHLORIDE 0.9% 250 ML IV ONE (10:30)
[2020-02-29] MEDS ORDERED: SODIUM CHLORIDE FLUSH 10ML SYR IVF ONE (10:30)
[2020-02-29] MEDS ORDERED: PIPERACILLIN/TAZO/PMX 3.375GM 50 ML IVPB ONE (10:30)
--- NOTE | 2020-02-29 10:49 | NUR ---
pt presents to ED from industrial maintenance manager Bertrand's office, industrial maintenance manager performed tendon surgery one week ago, pt was in his office for a recheck, industrial maintenance manager referred pt to ED as he suspects infection requiring IV abx. pt is a&ox4, pt reports pain to rt 3rd toe which is red, swollen, skin sloughed off. lab at bedside for blood cx and labs. xray completed. pt to go to MRI once labwork complete.
[2020-02-29] MEDS ORDERED: MULT-516 PO (10:56)
[2020-02-29] MEDS ORDERED: vitamin d3 PO (10:56)
[2020-02-29 11:13] LABS: HCT (SEDRATE) 39.6 % (34.6-47.8)
[2020-02-29 11:14] LABS: BASOPHILS # (AUTO) 0.03 x10^3/uL (0-0.1); BASOPHILS % (AUTO) 0 % (0-1); EOSINOPHILS # (AUTO) 0.18 x10^3/uL (0-0.4); EOSINOPHILS % (AUTO) 2 % (1-7); LYMPHOCYTES % (AUTO) 11 % (22-44); MD NO; MEAN CORPUSCULAR HEMOGLOBIN 29.5 pg (27.0-34.8); MEAN CORPUSCULAR HGB CONC 32.1 g/dL (32.4-35.8); MEAN CORPUSCULAR VOLUME 91.9 fL (80-100); MEAN PLATELET VOLUME 12.2 fL (7.4-10.4); MONOCYTES # (AUTO) 1.04 x10^3/uL (0.2-0.8); MONOCYTES % (AUTO) 8 % (2-9); NEUTROPHILS # (AUTO) 9.72 x10^3/uL (1.8-6.8); NEUTROPHILS % (AUTO) 79 % (42-75); PLATELET COUNT 220 x10^3/uL (130-400); RED CELL DISTRIBUTION WIDTH 13.7 % (9.6-15.2)
--- NOTE | 2020-02-29 11:14 | NUR ---
THIS RN UNABLE TO ESTABLISH PERIPHERAL IV, EDTA TO ATTEMPT WITH ULTRASOUND. PT UNABLE TO RECALL HOME MEDS, PT'S PHARMACY IS [facility]. THIS RN ON HOLD WITH PT'S PHARMACY TO COMPLETE MED REC.
[2020-02-29 11:25] LABS: INTERNATIONAL NORMALIZED RATIO 0.98 (0.93-1.1); PROTHROMBIN TIME 10.1 Seconds (9.6-11.5)
[2020-02-29 11:26] LABS: ALANINE AMINOTRANSFERASE 32 U/L (12-78); ALBUMIN 2.6 g/dL (3.4-5.0); ANION GAP 5 mmol/L (5-15); CALCIUM 9.1 mg/dL (8.5-10.1); CHLORIDE 105 mmol/L (98-107); CREATININE 1.04 mg/dL (0.55-1.02)
--- NOTE | 2020-02-29 11:32 | NUR ---
PIV ESTABLISHED BY EDTA, MRI NOTIFIED PT READY FOR MRI.
[2020-02-29 11:33] LABS: ALKALINE PHOSPHATASE 91 U/L (45-117); BILIRUBIN,TOTAL 0.7 mg/dL (0.2-1.0); TOTAL PROTEIN 6.9 g/dL (6.4-8.2)
--- NOTE | 2020-02-29 11:45 | NUR ---
pt taken to MRI.
[2020-02-29] MEDS ORDERED: GADOTERATE 7.5 MMOL/15 ML SYR ONE (11:50)
[2020-02-29] MEDS ORDERED: PIPERACILLIN/TAZO/PMX 3.375GM 50 ML ONE (11:58)
--- NOTE | 2020-02-29 12:07 | NUR ---
pt remains in MRI , to receive IV abx upon return.
--- NOTE | 2020-02-29 12:27 | NUR ---
this rn spoke with [facility] pharmacy rep who was to fax list of pt meds, fax still not received to complete med rec.
--- NOTE | 2020-02-29 12:31 | NUR ---
pt back from MRI, pt a&o, resps even and unlabored. pt reports 6/10 toe pain. zosyn infusing via dialaflow at 100mL/hr, blood cx drawn x 2 prior to admin.
[2020-02-29] MEDS ORDERED: LIDOCAINE 1%, 10ML INFIL ONE (13:00)
[2020-02-29] MEDS ORDERED: LIDOCAINE-MPF 1%, 5ML ONE (13:05)
[2020-02-29] MEDS ORDERED: GABA800T PO (13:11)
[2020-02-29] MEDS ORDERED: METF-754 PO (13:11)
[2020-02-29] MEDS ORDERED: MIRT-34 PO (13:11)
[2020-02-29] MEDS ORDERED: HYDR-3240 PO (13:11)
--- NOTE | 2020-02-29 13:14 | NUR ---
med rec still not received from [facility], pharmacy called. med rec verified over phone.
--- NOTE | 2020-02-29 13:22 | NUR ---
LUMA TOMLINSON AT BEDSIDE, I&D IN PROGRESS.
--- NOTE | 2020-02-29 13:28 | NUR ---
REPORT GIVEN TO GARRETT RAND PT TO BE TRANSPORTED TO ROOM 337 ONCE I&D COMPLETE.
--- NOTE | 2020-02-29 13:38 | NUR ---
pt transported to room 337, nadn. fernandez dose sent with pt to floor for infusion, receiving RN Aundrea aware of need to administer.
[2020-02-29 14:29] VITALS: BP 144/62
[2020-02-29] MEDS ORDERED: ONDANSETRON 2MG/ML, 2ML IVPush PRN (15:30)
[2020-02-29] MEDS ORDERED: BISACODYL 10 MG SUPP PR PRN (15:30)
[2020-02-29] MEDS ORDERED: ACETAMINOPHEN 325 MG TABLET PO PRN (15:30)
[2020-02-29] MEDS ORDERED: PROMETHAZINE 25 MG/ML, 1ML IM PRN (15:30)
[2020-02-29] MEDS ORDERED: POLYETHYLENE GLYCOL 17 GM PACKET PO PRN (15:30)
[2020-02-29] MEDS ORDERED: ONDANSETRON ODT 4 MG PO PRN (15:30)
[2020-02-29] MEDS ORDERED: MORPHINE SULFATE 4 MG/ML, 1ML IVPush PRN (15:30)
[2020-02-29] MEDS ORDERED: VANCOMYCIN PER PHARMACY MC PRN (16:00)
[2020-02-29] MEDS ORDERED: VANCOMYCIN 1,400 MG in SODIUM CHLORIDE 0.9% 250 ML IV SCH (16:30)
[2020-02-29] MEDS ORDERED: PHARMACOKINETIC MONITORING MC PRN (16:30)
[2020-02-29] MEDS: ENOXAPARIN 40 MG/0.4 ML SQ SCH (16:53)
[2020-02-29] MEDS: LACTOBACILLUS CHEW TABLET PO SCH ×2 (16:57→19:59)
[2020-02-29] MEDS ORDERED: AMLO-150 PO (17:59)
[2020-02-29] MEDS ORDERED: AMPICILLIN/SULBACTAM 3 GM in SODIUM CHLORIDE 0.9% 100 ML IV SCH (19:00)
[2020-02-29] MEDS: OXYcodone IR 5MG TABLET PO PRN ×2 (19:59→20:27)
[2020-02-29] MEDS: AMPICILLIN/SULBACTAM 3 GM in SODIUM CHLORIDE 0.9% 100 ML IV SCH (19:59)
[2020-02-29 20:01] VITALS: BP 103/62
[2020-03-01] MEDS: OXYcodone IR 5MG TABLET PO PRN ×3 (01:09→23:25)
[2020-03-01] MEDS: AMPICILLIN/SULBACTAM 3 GM in SODIUM CHLORIDE 0.9% 100 ML IV SCH ×4 (01:52→20:13)
[2020-03-01 02:45] VITALS: BP 110/58
[2020-03-01 05:25] LABS: BASOPHILS # (AUTO) 0.08 x10^3/uL (0-0.1); BASOPHILS % (AUTO) 1 % (0-1); EOSINOPHILS # (AUTO) 0.31 x10^3/uL (0-0.4); EOSINOPHILS % (AUTO) 3 % (1-7); LYMPHOCYTES # (AUTO) 2.13 x10^3/uL (1-3.4); LYMPHOCYTES % (AUTO) 23 % (22-44); MD NO; MEAN CORPUSCULAR HEMOGLOBIN 29.7 pg (27.0-34.8); MEAN CORPUSCULAR HGB CONC 32.5 g/dL (32.4-35.8); MEAN CORPUSCULAR VOLUME 91.3 fL (80-100); MEAN PLATELET VOLUME 11.9 fL (7.4-10.4); MONOCYTES # (AUTO) 0.82 x10^3/uL (0.2-0.8); MONOCYTES % (AUTO) 9 % (2-9); NEUTROPHILS # (AUTO) 6.04 x10^3/uL (1.8-6.8); NEUTROPHILS % (AUTO) 64 % (42-75); PLATELET COUNT 185 x10^3/uL (130-400); RED BLOOD COUNT 3.73 x10^6/uL (3.82-5.3); RED CELL DISTRIBUTION WIDTH 13.7 % (9.6-15.2)
[2020-03-01 05:26] LABS: CHLORIDE 107 mmol/L (98-107)
[2020-03-01 05:47] LABS: ALANINE AMINOTRANSFERASE 23 U/L (12-78); ALBUMIN 1.9 g/dL (3.4-5.0); ALKALINE PHOSPHATASE 73 U/L (45-117); ANION GAP 6 mmol/L (5-15); BILIRUBIN,TOTAL 0.5 mg/dL (0.2-1.0); CALCIUM 7.7 mg/dL (8.5-10.1); CHOL/HDL RATIO 2.4; CHOLESTEROL, TOTAL 71 mg/dL (140-239); CREATININE 0.79 mg/dL (0.55-1.02); HDL CHOL % 42 % (28-40); HDL CHOLESTEROL (DIRECT) 30 mg/dL (40-60); LDL CHOLESTEROL,CALCULATED 28 mg/dL (54-169); LDL/HDL RATIO 0.9 (0.5-3.0); TOTAL PROTEIN 5.8 g/dL (6.4-8.2); TRIGLYCERIDES 64 mg/dL (50-200); VLDL CHOLESTEROL 13 mg/dL (0-25)
[2020-03-01 07:08] VITALS: BP 121/69
[2020-03-01] MEDS: SENNA/DOCUSATE TABLET PO SCH (08:36)
[2020-03-01] MEDS: LACTOBACILLUS CHEW TABLET PO SCH ×3 (08:36→20:13)
[2020-03-01] MEDS: VANCOMYCIN 1,400 MG in SODIUM CHLORIDE 0.9% 250 ML IV SCH (09:32)
[2020-03-01] MEDS ORDERED: MAGNESIUM SULFATE PMX 2GM/50ML 50 ML IV ONE (13:30)
[2020-03-01 14:34] VITALS: BP 161/73
[2020-03-01] MEDS: ENOXAPARIN 40 MG/0.4 ML SQ SCH (15:25)
[2020-03-01 18:37] VITALS: BP 128/76
[2020-03-02 01:09] VITALS: BP 149/73
[2020-03-02] MEDS: AMPICILLIN/SULBACTAM 3 GM in SODIUM CHLORIDE 0.9% 100 ML IV SCH ×4 (02:25→20:03)
[2020-03-02] MEDS: VANCOMYCIN 1,400 MG in SODIUM CHLORIDE 0.9% 250 ML IV SCH ×2 (03:25→21:25)
[2020-03-02 06:40] VITALS: BP 165/78
[2020-03-02] MEDS: OXYcodone IR 5MG TABLET PO PRN ×2 (08:52→19:37)
[2020-03-02] MEDS: LACTOBACILLUS CHEW TABLET PO SCH ×3 (08:53→21:24)
[2020-03-02] MEDS: SENNA/DOCUSATE TABLET PO SCH (08:53)
[2020-03-02 13:36] VITALS: BP 154/76
[2020-03-02] MEDS: ENOXAPARIN 40 MG/0.4 ML SQ SCH (16:41)
[2020-03-02 20:06] VITALS: BP 138/75
[2020-03-03] MEDS: OXYcodone IR 5MG TABLET PO PRN ×3 (01:46→21:51)
[2020-03-03] MEDS: AMPICILLIN/SULBACTAM 3 GM in SODIUM CHLORIDE 0.9% 100 ML IV SCH ×4 (01:50→21:51)
[2020-03-03 02:04] VITALS: BP 166/89
[2020-03-03 07:01] VITALS: BP 175/92
[2020-03-03] MEDS: SENNA/DOCUSATE TABLET PO SCH (08:02)
[2020-03-03] MEDS: LACTOBACILLUS CHEW TABLET PO SCH ×3 (08:02→21:51)
[2020-03-03 08:29] LABS: ANION GAP 8 mmol/L (5-15); CALCIUM 8.4 mg/dL (8.5-10.1); CHLORIDE 107 mmol/L (98-107)
[2020-03-03 08:30] LABS: CREATININE 0.69 mg/dL (0.55-1.02)
[2020-03-03 08:56] VITALS: BP 175/88
[2020-03-03] MEDS: hydrALAzine 20 MG/ML, 1ML IVPush PRN (08:57)
[2020-03-03 09:35] VITALS: BP 135/65
[2020-03-03 12:28] VITALS: BP 154/84
[2020-03-03] MEDS: VANCOMYCIN 1,400 MG in SODIUM CHLORIDE 0.9% 250 ML IV SCH (15:43)
[2020-03-03] MEDS: ENOXAPARIN 40 MG/0.4 ML SQ SCH (16:37)
[2020-03-03 19:14] VITALS: BP 155/79
[2020-03-04 00:42] VITALS: BP 140/72
[2020-03-04] MEDS: AMPICILLIN/SULBACTAM 3 GM in SODIUM CHLORIDE 0.9% 100 ML IV SCH ×4 (04:39→22:33)
[2020-03-04 07:07] VITALS: BP 166/86
[2020-03-04] MEDS: LACTOBACILLUS CHEW TABLET PO SCH ×3 (09:15→21:09)
[2020-03-04] MEDS: VANCOMYCIN 1,400 MG in SODIUM CHLORIDE 0.9% 250 ML IV SCH (09:16)
[2020-03-04] MEDS: SENNA/DOCUSATE TABLET PO SCH (09:16)
[2020-03-04 12:44] VITALS: BP 141/64
[2020-03-04] MEDS: ENOXAPARIN 40 MG/0.4 ML SQ SCH (15:14)
[2020-03-04] MEDS: OXYcodone IR 5MG TABLET PO PRN ×2 (15:18→21:09)
[2020-03-04 19:22] VITALS: BP 167/80
[2020-03-05 02:11] VITALS: BP 159/81
[2020-03-05] MEDS: VANCOMYCIN 1,400 MG in SODIUM CHLORIDE 0.9% 250 ML IV SCH (03:04)
[2020-03-05] MEDS: AMPICILLIN/SULBACTAM 3 GM in SODIUM CHLORIDE 0.9% 100 ML IV SCH ×2 (04:54→09:39)
[2020-03-05 06:13] LABS: BASOPHILS # (AUTO) 0.03 x10^3/uL (0-0.1); BASOPHILS % (AUTO) 0 % (0-1); EOSINOPHILS # (AUTO) 0.29 x10^3/uL (0-0.4); EOSINOPHILS % (AUTO) 3 % (1-7); LYMPHOCYTES # (AUTO) 2.07 x10^3/uL (1-3.4); LYMPHOCYTES % (AUTO) 23 % (22-44); MD NO; MEAN CORPUSCULAR HEMOGLOBIN 29.3 pg (27.0-34.8); MEAN CORPUSCULAR HGB CONC 32.2 g/dL (32.4-35.8); MEAN PLATELET VOLUME 10.9 fL (7.4-10.4); MONOCYTES # (AUTO) 0.78 x10^3/uL (0.2-0.8); MONOCYTES % (AUTO) 9 % (2-9); NEUTROPHILS # (AUTO) 5.85 x10^3/uL (1.8-6.8); NEUTROPHILS % (AUTO) 65 % (42-75); PLATELET COUNT 244 x10^3/uL (130-400); RED CELL DISTRIBUTION WIDTH 13.7 % (9.6-15.2)
[2020-03-05 06:27] LABS: CHLORIDE 109 mmol/L (98-107)
[2020-03-05 06:31] LABS: ANION GAP 7 mmol/L (5-15); CALCIUM 8.7 mg/dL (8.5-10.1)
[2020-03-05 07:33] VITALS: BP 190/92
[2020-03-05 07:36] VITALS: BP 174/81
[2020-03-05] MEDS: hydrALAzine 20 MG/ML, 1ML IVPush PRN (07:50)
[2020-03-05] MEDS: LACTOBACILLUS CHEW TABLET PO SCH (09:38)
[2020-03-05] MEDS: SENNA/DOCUSATE TABLET PO SCH (09:39)
[2020-03-05] MEDS ORDERED: LINE600T12 PO (11:34)
[2020-03-05] MEDS ORDERED: ACID1TAB7 PO (11:34)
== END 2020-03-05 13:16 | disposition home or self-care (01) | DRG 603 ==
LOC: ED 10:58 → EDIP 11:44 → 3N 13:57
PROVIDERS: ADMIT Internal Medicine; ATTEND Internal Medicine
PROC: 0Y9M0ZZ Drainage of Right Foot, Open Approach (ICD-10-PCS; principal; 2020-02-29)
DX: L03.115 Cellulitis of right lower limb (principal); L02.611 Cutaneous abscess of right foot; J98.11 Atelectasis; E11.42 Type 2 diabetes mellitus with diabetic polyneuropathy; B95.62 Methicillin resistant Staphylococcus aureus infection as the cause of diseases classified elsewhere; I10 Essential (primary) hypertension; I25.10 Atherosclerotic heart disease of native coronary artery without angina pectoris; K21.9 Gastro-esophageal reflux disease without esophagitis; Z82.49 Family history of ischemic heart disease and other diseases of the circulatory system; Z83.3 Family history of diabetes mellitus; Z87.891 Personal history of nicotine dependence; Z95.5 Presence of coronary angioplasty implant and graft; Z98.84 Bariatric surgery status
CPT/HCPCS: 36415; 71045; 80048; 80053; 80061; 80202; 82962; 83036; 83605; 83735; 84443; 85025; 85610; 85651; 85730; 86140; 87040; 87070; 87075; 87077; 87186; 87205; 93005; G0378; J0295; J1650; J2543; J3370; A9575; J0360; J3475; J7050